=== PATIENT | male | born 1985 ===

== ENCOUNTER 2019-09-06 23:41 | Emergency (ER) | payer OTHER ==
[2019-09-07] MEDS ORDERED: ACETAMINOPHEN 500 MG TAB ONE (00:40)
[2019-09-07 01:19] LABS: Absolute Lymphocytes (CBC) 1.8 K/uL (0.7-4.9); Basophils % 0.9 % (0-1.3); Hematocrit 41.6 % (39.6-49.0); Lymphocytes % 25.5 % (15.3-44.8); MPV 8.6 fL (7.6-11.3); RBC Red Blood Cell Count 4.45 M/uL (4.33-5.43)
[2019-09-07 01:32] LABS: BUN Blood Urea Nitrogen 19 mg/dL (7-18); Bicarbonate 28 mmol/L (21-32); Glucose Level 98 mg/dL (74-106); Magnesium 2.3 mg/dL (1.8-2.4); NT PRO-BNP 22 pg/mL (<125); Sodium Level 144 mmol/L (136-145); Troponin (Emerg Dept Use Only) < 0.02 ng/mL (0.0-0.045)
--- NOTE | 2019-09-07 01:43 | EDPHYS ---
Physician Documentation [facility] Name: Joshua Bunch Age: 34 yrs Sex: Male : 1985 Arrival Date: 09/06/2019 Time: 23:51 Bed 20 Private MD: ED Physician Sohail Oliveira HPI: 09/06 00:05 This 34 yrs old Unknown Male presents to ER via Ambulatory with complaints of Chest cp Pain, Shortness Of Breath. 00:05 The patient has shortness of breath at rest. Onset: The symptoms/episode began/occurred cp today. The patient's shortness of breath is aggravated by light activity. Associated signs and symptoms: Pertinent positives: headache, loss of smell, Pertinent negatives: non-productive cough, productive cough, fever. Patient reports 2 co-workers testing positive for COVID-19. Historical: - Allergies: 09/05 23:57 No Known Allergies; sg - PMHx: 23:57 Degenerative disc disease; Post Traumatic Stress Disorder; sg - PSHx: 23:57 None; sg - Immunization history:: Adult Immunizations up to date. - Social history:: Smoking status: Patient denies any tobacco usage or history of. ROS: 09/06 00:08 Constitutional: Negative for body aches, chills, fever, poor PO intake. cp 00:08 Eyes: Negative for injury, pain, redness, and discharge. cp 00:08 ENT: Negative for ear pain, sore throat. 00:08 Neck: Negative for pain with movement, pain at rest, stiffness. 00:08 Cardiovascular: Negative for chest pain, edema, palpitations. 00:08 Respiratory: Positive for shortness of breath, at rest. Negative for cough, wheezing. 00:08 Abdomen/GI: Negative for abdominal pain, nausea, vomiting, and diarrhea. 00:08 Back: Negative for radiated pain. 00:08 Neuro: Negative for altered mental status, headache, syncope, weakness. 00:08 All other systems are negative. Exam: 00:10 Constitutional: The patient appears in no acute distress, alert, awake, comfortable, cp non-diaphoretic, non-toxic, well developed, well nourished. 00:10 Head/Face: Normocephalic, atraumatic. cp 00:10 Eyes: Periorbital structures: appear normal, Conjunctiva: normal, no exudate, no injection, Lids and lashes: appear normal, bilaterally. 00:10 ENT: External ear(s): are unremarkable, Nose: is normal, Posterior pharynx: Airway: no evidence of obstruction, patent. 00:10 Neck: ROM/movement: is normal, is supple, without pain, no range of motions limitations, no meningismus. 00:10 Chest/axilla: Inspection: normal, Palpation: is normal, no crepitus, no tenderness. 00:10 Cardiovascular: Rate: normal, Rhythm: regular, Heart sounds: murmur, not appreciated, Edema: is not appreciated, JVD: is not appreciated. 00:10 Respiratory: the patient does not display signs of respiratory distress, Respirations: normal, no use of accessory muscles, no retractions, labored breathing, is not present, Breath sounds: are clear throughout, no decreased breath sounds, no stridor, no wheezing. 00:10 Abdomen/GI: Inspection: abdomen appears normal, Palpation: abdomen is soft and non-tender, in all quadrants. 00:10 Neuro: Orientation: to person, place \T\ time. Mentation: is normal, Motor: moves all fours, strength is normal. 00:49 ECG was reviewed by the Attending Physician. cp Vital Signs: 09/05 23:54 BP 138 / 70; Pulse 87; Resp 16; Temp 98.1; Pulse Ox 98% on R/A; sg 09/06 01:05 BP 101 / 67; Pulse 68; Resp 16; Temp 98.9(O); Pulse Ox 99% on R/A; Pain 5/10; mt2 01:51 BP 107 / 67; Pulse 71; Resp 16; Pulse Ox 99% on R/A; Pain 0/10; mt2 MDM: 09/05 23:55 Patient medically screened. cp 09/06 00:15 Differential diagnosis: Anemia asthma, Bronchitis pneumonia, Pneumothorax Pulmonary cp Embolism COVID-19. 00:41 Test interpretation: by ED physician or midlevel provider: chest xray negative for cp infiltrates. 01:40 Data reviewed: vital signs, nurses notes, lab test result(s), EKG, radiologic studies, cp plain films, and as a result, I will discharge patient. 01:40 ED course: VSS. Patient instructed to quarantine while awaiting results of COVID-19 cp testing and if positive need for 14 day quarantine. 09/06 00:09 Order name: Basic Metabolic Panel; Complete Time: 01:34 cp 09/06 01:34 Interpretation: Normal except: CL 111; BUN 19; GFR 77. cp 09/06 00:09 Order name: CBC with Diff; Complete Time: 01:25 cp 09/06 01:25 Interpretation: Reviewed. cp 09/06 00:09 Order name: Magnesium; Complete Time: :34 cp 09/06 00:09 Order name: NT PRO-BNP; Complete Time: :34 cp 09/06 00:09 Order name: Troponin (emerg Dept Use Only); Complete Time: :34 cp 09/06 00:09 Order name: COVID-19 cp 09/06 00:09 Order name: EKG; Complete Time: 00:10 cp 09/06 00:09 Order name: EKG - Nurse/Tech; Complete Time: 01:03 cp 09/06 00:09 Order name: XRAY Chest (1 view) cp 09/06 00:09 Order name: Flu cp 09/06 00:09 Order name: Strep; Complete Time: 01:25 cp 09/06 01:26 Interpretation: Reviewed. cp 09/06 00:10 Order name: D-Dimer; Complete Time: 01:25 cp 09/06 01:25 Interpretation: Within normal limits: D-DIMER < 215. cp 09/06 02:15 Order name: Throat Culture EDMS 09/06 00:09 Order name: Cardiac monitoring; Complete Time: 01:02 cp 09/06 00:09 Order name: IV Saline Lock; Complete Time: 01: cp 09/06 00:09 Order name: Labs collected and sent; Complete Time: 01: cp 09/06 00:09 Order name: O2 Per Protocol; Complete Time: 01: cp 09/06 00:09 Order name: O2 Sat Monitoring; Complete Time: : cp EC:49 Rate is 61 beats/min. Rhythm is regular. IN interval is normal. QRS interval is normal. cp QT interval is normal. Interpreted by me. Reviewed by me. Administered Medications: 00:30 Drug: Tylenol 1000 mg Route: PO; mt2 01:51 Follow up: BP 107 / 67; Pulse 71 bpm; Resp 16 bpm; Pulse Ox 99% RA; Pain 0/10 Adult; mt2 Response: No adverse reaction; Marked relief of symptoms; Pain is decreased Disposition: 07:24 Co-signature as Attending Physician, Sohail Oliveira MD. [email or web address] Disposition: 09/07/19 01:42 Discharged to Home. Impression: Shortness of breath, Headache. - Condition is Stable. - Discharge Instructions: General Headache Without Cause, Shortness of Breath. - Prescriptions for Albuterol Sulfate 90 mcg/actuation - inhale 1-2 puff by INHALATION route every 4-6 hours; 1 Inhaler. - Medication Reconciliation Form, Thank You Letter, Antibiotic Education, Prescription Opioid Use form. - Follow up: Private Physician; When: 1 - 2 days; Reason: Worsening of condition. - Problem is new. - Symptoms have improved. Signatures: Dispatcher [employer] EDZbigniew Vann RN RN Juanjo Cardoso PA PA cp Sohail Oliveira MD MD 7 Chelsy Castro RN RN mt2 Corrections: (The following items were deleted from the chart) 02:24 01:42 09/07/2019 01:42 Discharged to Home. Impression: Shortness of breath; Headache. mt2 Condition is Stable. Forms are Medication Reconciliation Form, Thank You Letter, Antibiotic Education, Prescription Opioid Use. Follow up: Private Physician; When: 1 - 2 days; Reason: Worsening of condition. Problem is new. Symptoms have improved. cp
--- NOTE | 2019-09-07 01:43 | ER ---
Nurse's Notes [facility] Name: Joshua Bunch Age: 34 yrs Sex: Male : 1985 Arrival Date: 09/06/2019 Time: 23:51 Bed 20 Private MD: Diagnosis: Shortness of breath;Headache Presentation: 09/05 23:54 Chief complaint: Patient states: Audrey had some shortness of breath for 2 days, reports sg having pain in the chest with deep breathing, states would like to be tested for the COVID 19. Coronavirus screen: Patient denies a cough. Patient reports shortness of breath or difficulty breathing. Patient denies measured and/or subjective temperature greater than 100.4F prior to today's visit. Patient denies travel on a cruise ship or to a country the [facility] currently lists as an affected area. Patient denies contact with known and/or suspected case of COVID-19. Proceed with normal triage. Ebola Screen: Patient negative for fever greater than or equal to 101.5 degrees Fahrenheit, and additional compatible Ebola Virus Disease symptoms Patient denies exposure to infectious person. Patient denies travel to an Ebola-affected area in the 21 days before illness onset. No symptoms or risks identified at this time. Initial Sepsis Screen: Does the patient meet any 2 criteria? No. Patient's initial sepsis screen is negative. Does the patient have a suspected source of infection? No. Patient's initial sepsis screen is negative. Risk Assessment: Do you want to hurt yourself or someone else? Patient reports no desire to harm self or others. Onset of symptoms was September 06, 2019. Care prior to arrival: None. Transition of care: patient was not received from another setting of care. 23:54 Method Of Arrival: Ambulatory sg 23:54 Acuity: AMISH 4 sg Triage Assessment: 09/06 00:30 General: Behavior is calm, cooperative. mt2 Historical: - Allergies: 09/05 23:57 No Known Allergies; sg - PMHx: 23:57 Degenerative disc disease; Post Traumatic Stress Disorder; sg - PSHx: 23:57 None; sg - Immunization history:: Adult Immunizations up to date. - Social history:: Smoking status: Patient denies any tobacco usage or history of. Screenin/20 01:06 Abuse screen: Denies threats or abuse. Nutritional screening: No deficits noted. mt2 Tuberculosis screening: No symptoms or risk factors identified. Fall Risk None identified. Assessment: 00:30 Pain: Complains of pain in GENERALIZED Pain does not radiate. Pain began gradually. mt2 Neuro: No deficits noted. Cardiovascular: No deficits noted. Respiratory: No deficits noted. GI: No deficits noted. : No deficits noted. EENT: No deficits noted. Derm: No deficits noted. Musculoskeletal: No deficits noted. 01:54 Also complains of no other symptoms. Reassessment: Patient and/or family updated on mt2 plan of care and expected duration. Pain level reassessed. Patient denies pain at this time. Patient states symptoms have improved. General: Appears in no apparent distress. Vital Signs: 09/05 23:54 BP 138 / 70; Pulse 87; Resp 16; Temp 98.1; Pulse Ox 98% on R/A; sg 09/06 01:05 BP 101 / 67; Pulse 68; Resp 16; Temp 98.9(O); Pulse Ox 99% on R/A; Pain 5/10; mt2 01:51 BP 107 / 67; Pulse 71; Resp 16; Pulse Ox 99% on R/A; Pain 0/10; mt2 ED Course: 09/05 23:51 Patient arrived in ED. ag3 23:53 Juanjo Cardoso PA is PHCP. cp 23:53 Sohail Oliveira MD is Attending Physician. cp 23:56 Triage completed. sg 23:56 Arm band placed on. sg 09/06 00:30 Initial lab(s) drawn, by ia, sent to lab. Inserted saline lock: 20 gauge in left mt2 antecubital area, using aseptic technique. Blood collected. 00:32 XRAY Chest (1 view) In Process Unspecified. EDMS 01:01 Chelsy Castro, RADHA is Primary Nurse. mt2 01:01 D-Dimer Sent. mt2 01:01 COVID-19 Sent. mt2 01:01 Flu Sent. mt2 01:01 Strep Sent. mt2 01:01 Basic Metabolic Panel Sent. mt2 01:01 CBC with Diff Sent. mt2 01:02 Magnesium Sent. mt2 01:02 NT PRO-BNP Sent. mt2 01:02 Troponin (emerg Dept Use Only) Sent. mt2 01:06 Patient maintains SpO2 saturation greater than 95% on room air. mt2 02:22 Patient has correct armband on for positive identification. Bed in low position. Call mt2 light in reach. Side rails up X 1. monitoring specialist on. Pulse ox on. 02:22 No provider procedures requiring assistance completed. IV discontinued, intact, mt2 bleeding controlled, No redness/swelling at site. Pressure dressing applied. 02:25 Throat Culture Sent. mt2 Administered Medications: 00:30 Drug: Tylenol 1000 mg Route: PO; mt2 01:51 Follow up: BP 107 / 67; Pulse 71 bpm; Resp 16 bpm; Pulse Ox 99% RA; Pain 0/10 Adult; mt2 Response: No adverse reaction; Marked relief of symptoms; Pain is decreased Outcome: 01:42 Discharge ordered by MD. cp 02:22 Discharged to home ambulatory. mt2 02:22 Condition: good 02:22 Discharge instructions given to patient, Instructed on discharge instructions, follow up and referral plans. medication usage, Demonstrated understanding of instructions, follow-up care, medications, Prescriptions given X 1. 02:24 Patient left the ED. mt2 Addendum: 09/09/2019 12:44 Addendum: COVID-19 Result: Negative result given to RN to notify pt. Contacted by: Coby Greenfield RN. Notified pt of negative COVID 19 swab results. Pt advised that even with a negative test result they should remain in isolation until symptom free for 3 days without medication. Pt also advised to return to the ED for worsening symptoms. Signatures: Dispatcher [employer] Faina Ruiz RN RN dm5 Zbigniew Dubois RN RN sg Page, Corey, PA PA cp Gomez, Alice 3 Chelsy Castro RN RN mt2 Corrections: (The following items were deleted from the chart) 12:45 12:44 Addendum: COVID-19 Result: Negative result given to RN to notify pt. Contacted dm5 by: Coby Greenfield RN. dm5
[2019-09-07 06:15] VITALS: TEMP 98.9; O2SAT 99
[2019-09-07 06:17] VITALS: BP 107/67
--- NOTE | 2019-09-07 08:03 | RAD REPORT ---
EXAM DESCRIPTION: Kathie Single View09/07/2019 12:32 am CLINICAL HISTORY: Shortness of breath COMPARISON: none FINDINGS: The lungs appear clear of acute infiltrate. The heart is normal size. Mild prominence rig ht mediastinum IMPRESSION: Mild prominence right mediastinum probably combination of vessels and fat. Lymphadenopat hy however has a similar appearance. It is recommended that the patient have a followup PA and latera l chest series in 6 weeks for re-evaluation
== END 2019-09-07 02:24 | disposition home or self-care (01) ==
LOC: ER 23:41
DX: R06.02 Shortness of breath (principal); R51 Headache; Z20.828 Contact with and (suspected) exposure to other viral communicable diseases
CPT/HCPCS: 93005; 87070; 85025; 80048; 36415; 83735; 85379; 87081; 84484; 83880; 87804 ×2; 71045; 99285; U0001